=== PATIENT | male | born 1985 | race Caucasian/White ===

== ENCOUNTER 2020-09-29 19:43 | Emergency (ER) | payer OTHER ==
[~2020-09-29] VITALS: Ht 182.9 cm; Wt 72.6 kg
[2020-09-29] MEDS ORDERED: CEPHALEXIN500 MG PO (22:51)
[2020-09-29 23:03] VITALS: BP 110/73
== END 2020-09-29 23:04 | disposition home or self-care (01) ==
LOC: ER 19:43
DX: S61.211A Laceration without foreign body of left index finger without damage to nail, initial encounter (principal); W22.8XXA Striking against or struck by other objects, initial encounter; Y93.89 Activity, other specified; Y92.89 Other specified places as the place of occurrence of the external cause; Y99.8 Other external cause status